=== PATIENT | female | born 1985 | race Caucasian/White ===

== ENCOUNTER 2018-09-17 13:06 | Emergency (ER) | payer SELFPAY ==
[~2018-09-17] VITALS: Ht 165.1 cm; Wt 68.2 kg
[2018-09-17 13:11] VITALS: BP 132/63; TEMP 98.4
[2018-09-17 13:39] LABS: COLLECTION METHOD CLEAN CATCH
[2018-09-17 13:50] LABS: MUCOUS Present /lpf; PH 6 (5-8); URINE APPEARANCE Hazy; URINE BACTERIA Moderate /hpf; URINE BILIRUBIN Negative (NEGATIVE); URINE BLOOD Negative (NEGATIVE); URINE COLOR Yellow; URINE GLUCOSE Negative (NEGATIVE); URINE KETONE Trace (NEGATIVE); URINE LEUKOCYTE ESTERASE Trace (NEGATIVE); URINE NITRATE Negative (NEGATIVE); URINE PROTEIN(semi-quant) Negative (NEGATIVE); URINE UROBILINOGEN Negative (NEGATIVE)
[2018-09-17] MEDS ORDERED: AMOXICILLIN 8751 TAB PO (14:02)
[2018-09-17] MEDS ORDERED: NORCO 325 MG-51 TAB PO (14:05)
[2018-09-17 14:35] VITALS: PULSE 95
== END 2018-09-17 14:35 | disposition home or self-care (01) ==
LOC: COL.ER 13:06
PROVIDERS: Emergency Medicine
DX: N39.0 Urinary tract infection, site not specified (principal); K04.7 Periapical abscess without sinus; F17.210 Nicotine dependence, cigarettes, uncomplicated; Z90.710 Acquired absence of both cervix and uterus

== ENCOUNTER 2019-02-08 01:40 | Emergency (ER) | payer SELFPAY ==
[~2019-02-08] VITALS: Ht 165.1 cm; Wt 69.1 kg
[~2019-02-08 01:40] MED LIST: AMOXICILLIN 8751 TAB PO; NORCO 325 MG-51 TAB PO
[2019-02-08 01:44] VITALS: TEMP 98
[2019-02-08 02:32] LABS: BASO % 0.6 % (0.0-2.0); EOS # 0.2 (0.0-0.7); EOS % 3.6 % (0-4.0); GRAN # 3.8 (1.4-6.5); GRAN % 61.4 % (42.2-75.2); HEMOGLOBIN 12.3 g/dl (12.5-16.0); LYMPH # 1.7 (1.2-3.4); MEAN CELL VOLUME 93 fl (80.0-100.0); MEAN CORPUSCULAR HEMOGLOBIN 31 pg (27.0-31.0); MEAN CORPUSCULAR HGB CONC 33 g/dl (33.0-37.0); MEAN PLATELET VOLUME 10.1 fl (7.4-10.4); MONO # 0.4 (0.1-0.6); MONO % 6.1 % (1.7-9.3); PLATELET COUNT 233 K/mm3 (130-400); RED BLOOD COUNT 3.95 M/mm3 (4.10-5.30); REDCELL DISTRIBUTION WIDTH-CV 12.9 % (11.5-14.5)
[2019-02-08 02:45] LABS: ANION GAP 8 mmol/L (7-16); BLOOD UREA NITROGEN 15 mg/dL (7-17); CARBON DIOXIDE 26 mmol/L (22-30); CHLORIDE 105 mmol/L (98-107); CREATININE, serum 0.85 (0.52-1.25); GLUCOSE 113 mg/dL (74-106); SODIUM 139 mmol/L (137-145)
[2019-02-08 02:54] LABS: C-REACTIVE PROTEIN < 0.5 mg/dL (0.0-0.9); POTASSIUM 2.9 mmol/L (3.4-5.0); TROPONIN-I < 0.012 ng/mL (0.000-0.035)
[2019-02-08 03:08] LABS: HEMATOCRIT 36.9 % (37.0-47.0)
[2019-02-08] MEDS ORDERED: AMOXICILLIN 50500 MG PO (03:31)
[2019-02-08] MEDS ORDERED: PHENERGAN W/CO120 M1 PO (03:31)
[2019-02-08] MEDS ORDERED: K-DUR20 MEQ PO (03:34)
[2019-02-08 04:15] VITALS: BP 101/56; PULSE 77
== END 2019-02-08 04:15 | disposition home or self-care (01) ==
LOC: COL.ER 01:40
PROVIDERS: Emergency Medicine
DX: J20.9 Acute bronchitis, unspecified (principal); R07.89 Other chest pain; F17.210 Nicotine dependence, cigarettes, uncomplicated; Z90.49 Acquired absence of other specified parts of digestive tract; Z90.710 Acquired absence of both cervix and uterus; Z90.89 Acquired absence of other organs
CPT/HCPCS: J1100; J1170

== ENCOUNTER 2019-02-28 01:45 | Emergency (ER) | payer SELFPAY ==
[~2019-02-28] VITALS: Ht 165.1 cm; Wt 69.1 kg
[~2019-02-28 01:45] MED LIST changes: +AMOXICILLIN 50500 MG PO; +K-DUR20 MEQ PO; +PHENERGAN W/CO120 M1 PO
[2019-02-28 01:49] VITALS: TEMP 99.1
[2019-02-28] MEDS ORDERED: NORCO 325 MG-51 TAB PO (02:08)
[2019-02-28] MEDS ORDERED: CLEOCIN HCL300 MG PO (02:08)
[2019-02-28 02:20] VITALS: BP 107/54; PULSE 83
== END 2019-02-28 02:20 | disposition home or self-care (01) ==
LOC: COL.ER 01:45
DX: K02.9 Dental caries, unspecified (principal); K04.7 Periapical abscess without sinus; F17.210 Nicotine dependence, cigarettes, uncomplicated

== ENCOUNTER 2019-04-23 02:56 | Emergency (ER) | payer SELFPAY ==
[~2019-04-23] VITALS: Ht 165.1 cm; Wt 61.4 kg
[~2019-04-23 02:56] MED LIST changes: +CLEOCIN HCL300 MG PO
[2019-04-23 03:01] VITALS: TEMP 97.9
[2019-04-23] MEDS ORDERED: FLEXERIL 1010 MG/TAB PO (03:42)
[2019-04-23 04:30] VITALS: BP 121/69; PULSE 67
== END 2019-04-23 04:30 | disposition home or self-care (01) ==
LOC: COL.ER 02:56
DX: R07.81 Pleurodynia (principal); F17.210 Nicotine dependence, cigarettes, uncomplicated; Z98.890 Other specified postprocedural states; Z90.49 Acquired absence of other specified parts of digestive tract; Z90.89 Acquired absence of other organs; Z90.710 Acquired absence of both cervix and uterus
CPT/HCPCS: J1885

== ENCOUNTER 2019-08-24 17:46 | Emergency (ER) | payer SELFPAY ==
[~2019-08-24] VITALS: Ht 165.1 cm; Wt 59.1 kg
[~2019-08-24 17:46] MED LIST changes: +FLEXERIL 1010 MG/TAB PO
[2019-08-24 18:01] VITALS: BP 101/56; TEMP 97.5
[2019-08-24 18:32] VITALS: PULSE 72
== END 2019-08-24 18:32 | disposition home or self-care (01) ==
LOC: COL.ER 17:46
DX: K02.9 Dental caries, unspecified (principal); F17.210 Nicotine dependence, cigarettes, uncomplicated

== ENCOUNTER 2020-05-09 13:38 | Emergency (ER) | payer SELFPAY ==
[~2020-05-09] VITALS: Ht 165.1 cm; Wt 59.1 kg
[2020-05-09 13:59] VITALS: BP 107/69; PULSE 79; TEMP 98
== END 2020-05-09 14:20 | disposition left against medical advice (07) ==
LOC: COL.ER 13:38
DX: H92.01 Otalgia, right ear (principal)

== ENCOUNTER 2020-05-09 19:19 | Emergency (ER) | payer SELFPAY ==
[~2020-05-09] VITALS: Ht 165.1 cm; Wt 59.1 kg
[2020-05-09 19:40] VITALS: BP 108/70; TEMP 98.6
[2020-05-09 20:27] VITALS: PULSE 87
== END 2020-05-09 20:27 | disposition home or self-care (01) ==
LOC: COL.ER 19:19
DX: T23.032A Burn of unspecified degree of multiple left fingers (nail), not including thumb, initial encounter (principal); T23.062A Burn of unspecified degree of back of left hand, initial encounter; T23.031A Burn of unspecified degree of multiple right fingers (nail), not including thumb, initial encounter; T23.061A Burn of unspecified degree of back of right hand, initial encounter; T31.0 Burns involving less than 10% of body surface; F17.210 Nicotine dependence, cigarettes, uncomplicated; X12.XXXA Contact with other hot fluids, initial encounter; Y93.E9 Activity, other interior property and clothing maintenance; Y92.000 Kitchen of unspecified non-institutional (private) residence as the place of occurrence of the external cause

== ENCOUNTER 2020-10-01 09:33 | Emergency (ER) | payer SELFPAY ==
[~2020-10-01] VITALS: Ht 165.1 cm; Wt 65.5 kg
[2020-10-01 09:49] VITALS: BP 101/66; TEMP 98
[2020-10-01] MEDS ORDERED: NORCO 325 MG-51 TAB PO ×2 (10:36→10:58)
[2020-10-01] MEDS ORDERED: AMOXICILLIN 50500 MG PO ×2 (10:36→10:58)
[2020-10-01] MEDS ORDERED: XANAX 1MG1 MG PO (10:39)
[2020-10-01] MEDS ORDERED: ABILIFY5 MG PO (10:39)
[2020-10-01] MEDS ORDERED: ZYPREXA15 MG PO (10:39)
[2020-10-01 11:05] VITALS: PULSE 84
== END 2020-10-01 11:05 | disposition home or self-care (01) ==
LOC: COL.ER 09:33
DX: K08.89 Other specified disorders of teeth and supporting structures (principal); F41.9 Anxiety disorder, unspecified; F32.9 Major depressive disorder, single episode, unspecified; F17.200 Nicotine dependence, unspecified, uncomplicated
CPT/HCPCS: J1885

== ENCOUNTER 2021-01-13 18:48 | Emergency (ER) | payer SELFPAY ==
[~2021-01-13] VITALS: Ht 165.1 cm; Wt 65.9 kg
[~2021-01-13 18:48] MED LIST changes: +ABILIFY5 MG PO; +XANAX 1MG1 MG PO; +ZYPREXA15 MG PO
[2021-01-13 18:55] VITALS: TEMP 98.3
[2021-01-13 19:13] LABS: COLLECTION METHOD CLEAN CATCH
[2021-01-13 19:38] LABS: MUCOUS Present /lpf; PH 6 (5-8); SQUAMOUS EPITHELIAL 0-2 /hpf; URINE APPEARANCE Hazy; URINE BACTERIA Rare /hpf; URINE BILIRUBIN Negative (NEGATIVE); URINE BLOOD Negative (NEGATIVE); URINE COLOR Yellow; URINE GLUCOSE Negative (NEGATIVE); URINE KETONE Negative (NEGATIVE); URINE LEUKOCYTE ESTERASE Negative (NEGATIVE); URINE NITRATE Negative (NEGATIVE); URINE PROTEIN(semi-quant) Negative (NEGATIVE); URINE RBC 0-2 /hpf; URINE UROBILINOGEN Negative (NEGATIVE)
[2021-01-13 19:46] LABS: BASO % 0.7 % (0.0-2.0); EOS # 0.3 (0.0-0.7); EOS % 4.6 % (0-4.0); GRAN % 53.1 % (42.2-75.2); HEMOGLOBIN 12.1 g/dl (12.5-16.0); LYMPH % 34.5 % (20.0-51.0); MEAN CELL VOLUME 91 fl (80.0-100.0); MEAN CORPUSCULAR HEMOGLOBIN 30 pg (27.0-31.0); MEAN CORPUSCULAR HGB CONC 33 g/dl (33.0-37.0); MEAN PLATELET VOLUME 10.2 fl (7.4-10.4); MONO # 0.4 (0.1-0.6); MONO % 6.9 % (1.7-9.3); PLATELET COUNT 199 K/mm3 (130-400); RED BLOOD COUNT 3.98 M/mm3 (4.10-5.30); REDCELL DISTRIBUTION WIDTH-CV 12.4 % (11.5-14.5)
[2021-01-13 19:47] LABS: HEMATOCRIT 36.2 % (37.0-47.0)
[2021-01-13] MEDS ORDERED: PERCOCET 325 MG1 TA2 PO (22:44)
[2021-01-13 22:55] VITALS: BP 114/70; PULSE 68
== END 2021-01-13 22:55 | disposition home or self-care (01) ==
LOC: COL.ER 18:48
PROVIDERS: Emergency Medicine
DX: R10.2 Pelvic and perineal pain (principal); Z90.710 Acquired absence of both cervix and uterus; Z90.721 Acquired absence of ovaries, unilateral
CPT/HCPCS: J2270; J2405; J7030; Q9967

== ENCOUNTER 2021-05-04 18:16 | Emergency (ER) | payer SELFPAY ==
[~2021-05-04] VITALS: Ht 165.1 cm; Wt 63.6 kg
[~2021-05-04 18:16] MED LIST changes: +PERCOCET 325 MG1 TA2 PO
[2021-05-04 18:50] VITALS: TEMP 97.7
[2021-05-04] MEDS ORDERED: PEN-VEE K500 MG PO ×3 (19:08→19:18)
[2021-05-04] MEDS ORDERED: NORCO 325 MG-51 TAB PO ×3 (19:08→19:18)
[2021-05-04 19:17] VITALS: BP 105/72; PULSE 81
== END 2021-05-04 19:17 | disposition home or self-care (01) ==
LOC: COL.ER 18:16
DX: K08.89 Other specified disorders of teeth and supporting structures (principal); F41.9 Anxiety disorder, unspecified; F17.200 Nicotine dependence, unspecified, uncomplicated; Z79.899 Other long term (current) drug therapy